=== PATIENT | male | born 1965 | race Caucasian/White ===

== ENCOUNTER 2020-02-03 00:26 | Outpatient (CLI) | payer BC, SELFPAY ==
[2020-02-03 18:02] LABS: SARS-CoV-2 RNA PCR Negative
== END 2020-02-03 00:27 | disposition home or self-care (01) ==
LOC: ANHCOVIDDT 00:26
PROVIDERS: PCP Internal Medicine; Visit Provider Internal Medicine Gastroenterology
DX: Z01.812 Encounter for preprocedural laboratory examination (principal); Z20.828 Contact with and (suspected) exposure to other viral communicable diseases
CPT/HCPCS: 87635; C9803; U0003

== ENCOUNTER 2020-02-06 00:34 | Day surgery (SDC) | payer BC, SELFPAY ==
[2020-02-03 08:55] VITALS: BMI 41.1
[2020-02-06 10:46] VITALS: BP 140/92; PULSE 77; RESP 18; TEMP 36.4; O2SAT 98; BMI 40.4
--- NOTE | 2020-02-06 10:51 | P.PNAN_ITS ---
Anes - Initial Pre Proc Eval Procedure: Operation Date: 02/06/20 11:30 Proposed Procedures p Screening Colonoscopy - Sandeep Powell MD Date/Time: 02/06/20 10:51 Surgeon: Snadeep Powell MD Pre Op Diagnosis: neoplasm screening Patient Data Age: 54 Gender: M Height: 6 ft 2 in Weight: 142.8 kg Last Vital Signs Temp 97.6 F 02/06/20 10:46 Pulse 77 02/06/20 10:46 Resp 18 02/06/20 10:46 BP 140/92 H 02/06/20 10:46 Pulse Ox 98 02/06/20 10:46 Allergies Allergy/AdvReac Type Severity Reaction Status Date / Time No Known Allergies Allergy Mild Verified 02/06/20 10:45 Home Medications Medication Instructions Recorded Confirmed Type sildenafil 100 mg PO PRN PRN 02/03/20 02/06/20 History Patient hx anesthesia problems: none Family hx anesthesia problems: none [facility] Past Medical History Medical History (Updated 02/06/20 @ 10:50 by Faustino Bartlett MD) Arthritis Social History Social History Smoking status: Never smoker Alcohol intake: never Substance use: never Substance use type: does not use Living arrangements: alone Spiritual care concerns: No Anes - Eval Final PreProcedure Day of Procedure 02/06/20 10:51 Patient weight: morbidly obese Heart: regular rate and rhythm Lungs: clear to auscultation Airway: Mallampati scale class II Neurological: alert and oriented Last oral intake: >/= 8 hours ASA classification: III Emergent: no Anesthetic plan: proceed Anesthesia type and monitoring: general GIVS and standard monitoring Informed Consent: The patient's anesthetic plan and its attendant risks and benefits were discussed with the patient/family/POA. Questions were solicited and answers provided to the satisfaction of the patient/family/POA.
--- NOTE | 2020-02-06 10:56 | P.HP_ITS ---
History of Present Illness History of Present Illness Consent: Risks, benefits, and alternatives have been discussed and questions answered. Patient agrees to proceed with procedure. Chief complaint: neoplasm screening Narrative: Jamaal Mayo is a 54 year old W male referred for screening colonoscopy. Patient is asymptomatic and there is no family history of colon polyps or colon cancer. Last colonoscopy was 10 years ago. [facility] Past Medical History Medical History Arthritis Social History Social History Smoking status: Never smoker Alcohol intake: never Substance use: never Substance use type: does not use Living arrangements: alone Spiritual care concerns: No Meds Home Medications and Allergies Home Medications Medication Instructions Recorded Confirmed Type sildenafil 100 mg PO PRN PRN 02/03/20 02/06/20 History Allergies Allergy/AdvReac Type Severity Reaction Status Date / Time No Known Allergies Allergy Mild Verified 02/06/20 10:45 Vital Signs Vital Signs - 24 hr 02/06/20 10:46 Temperature 36.4 C Pulse Rate 77 Respiratory Rate 18 Blood Pressure 140/92 H Pulse Oximetry 98 Exam Const: Orientation/consciousness: patient oriented x3 Resp: Auscultation: clear to auscultation bilaterally Cardio: Rate: regular rate Rhythm: regular rhythm Heart sounds: no murmurs GI: GI Palp: Yes Soft to palpation, No Tenderness to palpation present (GI), Yes No hepatosplenomegaly present and No Palpable mass present Auscultation: normal bowel sounds Neuro: General: patient oriented x3 and no focal motor deficits Extrem: General: no pedal edema Assessment and Plan Additional Plan Screening colonoscopy in average risk patient
[2020-02-06] MEDS: LACTATED RINGERS 1,000 ML 150 ML IV CONT (10:58)
[2020-02-06 11:47] VITALS: BP 137/86; PULSE 73; RESP 22; O2SAT 98
[2020-02-06 11:57] VITALS: BP 128/80; PULSE 67; RESP 18; O2SAT 98
[2020-02-06 12:07] VITALS: BP 131/96; PULSE 66; RESP 14; O2SAT 100
== END 2020-02-06 12:20 | disposition home or self-care (01) ==
PROVIDERS: PCP Internal Medicine; Visit Provider Internal Medicine Gastroenterology
PROC: 0DJD8ZZ Inspection of Lower Intestinal Tract, Via Natural or Artificial Opening Endoscopic (ICD-10-PCS; CPT 45378; principal; 2020-02-06 11:30)
DX: Z12.11 Encounter for screening for malignant neoplasm of colon (principal); K57.30 Diverticulosis of large intestine without perforation or abscess without bleeding; K64.8 Other hemorrhoids; E66.01 Morbid (severe) obesity due to excess calories; Z68.41 Body mass index [BMI] 40.0-44.9, adult
CPT/HCPCS: 45378; J2704; J7120

== ENCOUNTER 2024-01-14 19:26 | Emergency (ER) | payer BC, SELFPAY ==
--- NOTE | ~2024-01-14 | CT_ITS ---
EXAMINATION: CT abdomen pelvis w con DATE: 01/14/2024 23:38 INDICATION: Left abdominal pain. TECHNIQUE: Computed tomography (CT) of the abdomen and pelvis was performed with 100 mL Omnipaque 350 intravenous contrast. Automated exposure control and iterative reconstruction technique were employe d. The dose-length product was 1710.67 mGy-cm. COMPARISON: None. FINDINGS: The visualized portions of the lung bases demonstrate mild atelectasis. No pleural effusion . The heart size is normal. No pericardial effusion. The liver, gallbladder, spleen, pancreas, adrena l glands, and left kidney are normal. There is a 2 mm stone in right kidney. There are no dilated loo ps of bowel. The appendix is normal. There are no pathologically enlarged lymph nodes. There is no fr ee intraperitoneal fluid. There is severe lower lumbar spondylosis. 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 There is 7 mm anterolisthesis of L5 on S1. IMPRESSION: 1. No specific etiology for the patient's symptoms. Reviewed, dictated and finalized at location A.
[2024-01-14 19:28] VITALS: BP 148/78; PULSE 87; RESP 17; TEMP 36.7; O2SAT 98
[2024-01-14 19:46] LABS: Basophils Percent Auto 0.5 % (0.2-1.2); Eosinophils Absolute Auto 0.2 K/mm3 (0-0.3); Hemoglobin 14.4 g/dL (14.0-18.0); Immature Granulocyte Absolute 0.03 K/mm3 (0.00-0.031); Immature Granulocyte Percent A 0.4 % (0-0.5); Lymphocytes Percent Auto 36.9 % (18.3-44.2); Mean Corpuscular HGB Conc 35.1 g/dl (32-36); Mean Corpuscular Hemoglobin 32.8 pg (26-34); Mean Corpuscular Volume 93.4 fl (80-100); Mean Platelet Volume 8.9 fl (7.4-10.4); Monocytes Absolute Auto 0.8 K/mm3 (0.1-0.6); Monocytes Percent Auto 9.8 % (2.6-8.5); Neutrophils Absolute Auto 4.3 K/mm3 (1.3-6.7); Neutrophils Percent Auto 50.4 % (45.5-73.1); Platelet Count Result 212 k/mm3 (150-375); Red Blood Count 4.39 M/mm3 (4.6-6.20); Red Cell Distribution Width 12.8 % (11.5-14.5); White Blood Count 8.4 K/mm3 (4.5-10.0)
[2024-01-14 19:49] LABS: Add Urine Microscopic? YES; Appearance Urine Cloudy (Clear); Bacteria Urine None Seen /hpf; Bilirubin Urine Negative (Negative); Blood Urine Negative (Negative); Color Urine Yellow (Yellow); Glucose Urine UA Negative (Negative); Ketones Urine Negative (Negative); Leukocyte Esterase Ur Negative LEU/UL (Negative); Nitrate Urine Negative (Negative); Non Pathogenic Casts 0-2; Protein Urine Negative (Negative); RBC Urine 0-2 /hpf (0-2); Squamous Epithelial Cell Urine None Seen /hpf (Few); WBC Urine 0-5 /hpf (0-3); pH Urine 5.5 (5.0-9.0)
[2024-01-14 19:55] LABS: Alanine Aminotransferase 29 U/L (6-50); Alkaline Phosphatase 76 U/L (38-126); Anion Gap 10 mmol/L (4-12); Aspartate Amino Transferase 32 U/L (17-59); Bilirubin,Total 0.6 mg/dL (0.2-1.3); Blood Urea Nitrogen 18 mg/dL (9-20); Carbon Dioxide 25 mmol/L (22-30); Chloride 100 mmol/L (98-107); Estimated Glomerular Filt Rate > 60; Glucose 100 mg/dL (65-110); Lipase 111 U/L (23-300); Sodium 135 mmol/L (137-145)
[2024-01-14 22:52] VITALS: BP 140/93; PULSE 73; PULSE 74; RESP 22; RESP 24; TEMP 36.6; O2SAT 97
--- NOTE | 2024-01-14 22:57 | ED.ABDPAIN ---
HPI - Abdominal Pain General Chief Complaint: Abdominal Pain Stated Complaint: L abdominal pain Time Seen by Provider: 01/14/24 22:51 History of Present Illness HPI narrative: 58-year-old male presenting to the emergency department for evaluation for few weeks of left upper quadrant left flank pain. Patient denies any prior history of gastritis. Patient denies any prior history of ureteral calculi. Patient does have a prior history diverticulitis. Patient denies any associated nausea vomiting, denies any associated hematuria. Denies any change in bowel habits. Patient states he has intermittently felt some left upper quadrant abdominal swelling. Related Data Home Medications Medication Instructions Recorded Confirmed sildenafil 100 mg tablet 100 mg PO PRN PRN Erectile 02/03/20 02/06/20 Dysfunction Allergies Allergy/AdvReac Type Severity Reaction Status Date / Time No Known Allergies Allergy Mild Verified 01/14/24 19:28 Review of Systems Review of Systems: All systems reviewed & are unremarkable except as noted in HPI and below PMFSH Past Medical History Medical History (Updated 01/15/24 @ 00:25 by Preston Cortés MD) Arthritis Social History Social History Smoking status: Never smoker Alcohol intake: never Substance use: never Substance use type: does not use Living arrangements: alone Spiritual care concerns: No Exam Narrative: APPEARANCE: Well appearing, no pain, no distress, well-nourished. HEAD: normocephalic, atraumatic. EYES: PERRLA/EOMI, conjunctivae clear. NOSE: Normal no drainage EARS:TMS clear with good light reflex. THROAT: Pharynx clear, no exudate. NECK: Supple. No adenopathy, no masses. RESPIRATORY: Airway patent, respirations nonlabored. Clear to auscultation bilaterally, no rales, rhonchi, wheezing. CARDIOVASCULAR: Regular rate and rhythm without murmurs rubs or gallops. ABDOMINAL: Left CVA and left upper quadrant tenderness to palpation MUSCULOSKELETAL: Moves all extremities. Strength/ROM intact, No edema, No calf tenderness. NEURO: Alert. Cranial nerves II through XII intact. Good gait. Good coordination SKIN: Warm, dry. Normal Color Course Course Emergency Course: Patient was discharged home with close outpatient follow-up. Vital Signs Vital signs: Vital Signs Temperature 98.1 F 01/14/24 19:28 Pulse Rate 87 01/14/24 19:28 Respiratory Rate 17 01/14/24 19:28 Blood Pressure 148/78 H 01/14/24 19:28 Pulse Oximetry 98 01/14/24 19:28 Oxygen Delivery Room Air 01/14/24 19:28 Temperature 97.9 F 01/15/24 00:22 Pulse Rate 66 01/15/24 00:22 Respiratory Rate 15 01/15/24 00:22 Blood Pressure 133/78 01/15/24 00:22 Pulse Oximetry 98 01/15/24 00:22 Oxygen Delivery Room Air 01/14/24 19:28 MDM - Abdominal Pain MDM Narrative Medical decision making narrative: 58-year-old male presents to the emergency department for evaluation for left upper quadrant pain. Patient is afebrile with no leukocytosis and a stable hemoglobin. No acute abnormalities on CMP is normal lipase. UA was negative and had no hematuria. CT scan abdomen pelvis showed no acute findings. Patient may have passed a kidney stone left. Patient does have kidney stones on the right there are still within the kidney. Patient will be started on omeprazole for possible underlying gastritis. Patient was encouraged of close follow-up with primary care physician. Differential Diagnosis Differential diagnosis: Likely abdominal pain, acute appendicitis, calculus of kidney, constipation, diverticulitis, gastroenteritis and pancreatitis Lab Data Attestation: I reviewed the patient's lab results. 01/14/24 19:39 01/14/24 19:39 Labs: Lab Results 01/14/24 01/14/24 Range/Units 19:36 19:39 WBC 8.4 (4.5-10.0) K/mm3 RBC 4.39 L (4.6-6.20) M/mm3 Hgb 14.4 (14.0-18.0) g/dL Hct 41.0 L (42.0-52.0) % MCV 93.4 (80-100)
[2024-01-15 00:22] VITALS: BP 133/78; PULSE 66; RESP 15; TEMP 36.6; O2SAT 98
== END 2024-01-15 00:34 | disposition home or self-care (01) ==
PROVIDERS: Emergency Provider Emergency Medicine; PCP Internal Medicine
DX: R10.12 Left upper quadrant pain (principal)
CPT/HCPCS: 36415; 74177; 80053; 81001; 83690; 85025; 99284; Q9967